=== PATIENT | female | born 1965 | race Asian ===

== ENCOUNTER 2018-02-27 09:02 | Outpatient (CLI) | payer BC ==
--- NOTE | 2018-02-27 15:07 | Ultrasound Report ---
ULTRASOUND ABDOMEN LIMITED: TECHNIQUE: Transabdominal ultrasound with color Doppler interrogation. HISTORY: Abnormal results of liver function studies. COMPARISON: none. FINDINGS: LIVER: The liver parenchyma is echogenic and attenuates the ultrasound beam consistent with diffuse fatty infiltration. No evidence for focal mass, enlargement or surface nodularity. BILIARY SYSTEM: Normal. PANCREAS: Normal. RIGHT KIDNEY: Normal. PROXIMAL AORTA: Normal. ASCITES: None. IMPRESSION: Hepatic steatosis.
== END 2018-02-27 09:03 | disposition home or self-care (01) ==
LOC: US 09:02
PROVIDERS: ATTEND Internal Medicine
DX: K76.0 Fatty (change of) liver, not elsewhere classified (principal); Z91.018 Allergy to other foods
CPT/HCPCS: 76705

== ENCOUNTER 2018-11-12 11:32 | Outpatient (CLI) | payer BC ==
--- NOTE | 2018-11-12 13:02 | Mammography Report ---
Bilateral mammogram: Compared to 03/05/13. CAD study utilized. Findings: Heterogeneous breast parenchyma bilaterally. Benign density right and left breast. No microcalcification. Normal axilla. Impression: Benign findings. Annual followup recommended. BI-RADS CATEGORY: 2 = Benign ACR BI-RADS MAMMOGRAPHIC CODES: 0 = Needs additional imaging evaluation; 1 = Negative; 2 = Benign; 3 = Probably benign; 4 = Suspicious; 5 = Malignant; 6 = Known biopsy-proven malignancy COMMENT: 1. Dense breast tissue, i.e., adenosis, fibrocystic changes, etc., may obscure an underlying neoplasm. 2. Approximately 10% of cancers are not detected with mammography. 3. A negative mammography report should not delay biopsy if a clinically suspicious mass is present. COMMENT: Patient follow-up letters are generated in English Helper.
== END 2018-11-12 11:33 | disposition home or self-care (01) ==
LOC: MAMMO 11:32
PROVIDERS: ATTEND Internal Medicine
DX: Z12.31 Encounter for screening mammogram for malignant neoplasm of breast (principal)
CPT/HCPCS: 77067